=== PATIENT | female | born 1935 | race Asian ===

== ENCOUNTER 2019-02-07 16:54 | Emergency (ER) | payer MEDICARE, OTHER ==
[~2019-02-07] VITALS: Ht 162.6 cm; Wt 67.8 kg
[~2019-02-07 16:54] MED LIST: AZU500E PO; CARV6.2579 PO; FOLI-49 PO; GABA300C16 PO; GABA400C14 PO; HYDR-3498; HYDR200T39 PO; IBUP-1561 PO; LORA0.5T PO; LORA1TAB PO; LOSA1TAB3 PO; MET25 PO; NITR-58 PO; NORC 5-325 PO; OMEP20CA17 PO; OMEP40CA38 PO; SACU1TAB PO; SIMV20TA PO; SIMV20TA2 PO; SULF500T45 PO
[2019-02-07 17:02] VITALS: Ht 162.6 cm; Wt 67.8 kg
[2019-02-07] MEDS ORDERED: ACETAMINOPHEN 325 MG TAB PO ONE (17:30)
[2019-02-07 20:18] VITALS: BP 128/70; PULSE 80; RESP 16
== END 2019-02-07 20:19 | disposition home or self-care (01) ==
LOC: E/R 16:54
DX: S00.81XA Abrasion of other part of head, initial encounter (principal); N39.0 Urinary tract infection, site not specified; D64.9 Anemia, unspecified; I10 Essential (primary) hypertension; I25.10 Atherosclerotic heart disease of native coronary artery without angina pectoris; V43.52XA Car driver injured in collision with other type car in traffic accident, initial encounter; Z91.010 Allergy to peanuts
CPT/HCPCS: 36415; 71045; 80048; 81003; 84484; 85025; 93005